=== PATIENT | male | born 1960 | race Caucasian/White ===

== ENCOUNTER 2019-02-02 10:42 | Outpatient (CLI) | payer SELFPAY ==
--- NOTE | 2019-02-02 13:09 | ULT ---
RENAL ULTRASOUND: HISTORY: Gross hematuria and pelvic pain. FINDINGS: Real-time imaging of the right and left kidney show the right kidney measures 10.9 and the left kidne y 12.3 cm in size. There are no signs of a cyst, mass, or obstruction. The bladder is normal in nataliya earance. There is mild post void residual. The pre-void volume is 450 mL. The post-void volume is 78 mL. No bladder mass identified. IMPRESSION: Mild post-void residual; otherwise, unremarkable renal ultrasound. POS: [facility]
== END 2019-02-02 10:43 | disposition home or self-care (01) ==
LOC: NAV RAD 10:42
PROVIDERS: ATTEND Nurse Practitioner Adult Health
DX: R31.29 Other microscopic hematuria (principal); R10.2 Pelvic and perineal pain
CPT/HCPCS: 76770

== ENCOUNTER 2024-11-14 11:21 | Emergency (ER) | payer OTHER | END 2024-11-14 11:58 | disposition home or self-care (01) | LOC: NAV ERS 11:21 | DX: R33.9 Retention of urine, unspecified (principal); E11.9 Type 2 diabetes mellitus without complications; I10 Essential (primary) hypertension; Z79.4 Long term (current) use of insulin | CPT/HCPCS: 51702; 99283 ==

== ENCOUNTER 2024-11-17 12:21 | Emergency (ER) | payer OTHER ==
[2024-11-17 13:14] LABS: Bilirubin Negative (Negative); Blood, Urine Large (Negative); CAUTI Indications for Culture Dysuria,urgency,freq; Clarity Clear (Clear); Glucose, Urine (Dipstick) Negative (Negative); Ketone, Urine Negative (Negative); Leukocyte Negative (Negative); Nitrite Negative (Negative); Protein, Urine (Dipstick) Negative (Neg-Trace); Urobilinogen 0.2 mg/dL (Less than 2); pH, Urine 6.5 (5.0-9.0)
[2024-11-17 13:15] LABS: Urine Culture Reflex No No
== END 2024-11-17 14:05 | disposition home or self-care (01) ==
LOC: NAV ERS 12:21
DX: R33.9 Retention of urine, unspecified (principal); I10 Essential (primary) hypertension; E11.9 Type 2 diabetes mellitus without complications
CPT/HCPCS: 51702; 81001; 99283